=== PATIENT | male | born 1995 ===

== ENCOUNTER 2020-11-10 17:00 | Emergency (ER) | payer SELFPAY ==
[2020-11-10 17:03] VITALS: BP 128/95; PULSE 97; RESP 16; TEMP 36.3; O2SAT 97; BMI 34.4
== END 2020-11-10 17:25 | disposition left against medical advice (07) ==
LOC: ED 18:00
DX: Z53.21 Procedure and treatment not carried out due to patient leaving prior to being seen by health care provider (principal)